=== PATIENT | female | born 1990 | race Two or more races ===

== ENCOUNTER 2021-09-04 11:10 | Day surgery (SDC) | payer OTHER ==
[~2021-09-04 11:10] MED LIST: SYNTHROID50 MCG PO
== END 2021-09-04 21:25 | disposition home or self-care (01) ==
LOC: CIR.AMB 11:10
PROVIDERS: ATTEND Obstetrics & Gynecology
DX: N84.0 Polyp of corpus uteri (principal); E03.9 Hypothyroidism, unspecified; E66.9 Obesity, unspecified; Z20.822 Contact with and (suspected) exposure to COVID-19

== ENCOUNTER 2022-07-22 05:47 | Day surgery (SDC) | payer OTHER ==
[~2022-07-22] VITALS: Ht 160 cm; Wt 79.4 kg
== END 2022-07-22 10:55 | disposition home or self-care (01) ==
LOC: CIR.AMB 05:47
PROVIDERS: ATTEND Surgery
DX: D17.23 Benign lipomatous neoplasm of skin and subcutaneous tissue of right leg (principal); Z20.822 Contact with and (suspected) exposure to COVID-19; F17.210 Nicotine dependence, cigarettes, uncomplicated; E03.9 Hypothyroidism, unspecified